=== PATIENT | female | born 1945 | race Caucasian/White ===

== ENCOUNTER 2016-11-27 17:59 | Inpatient (IN) | payer MEDICARE ==
[~2016-11-27] VITALS: Ht 160 cm; Wt 69.8 kg
[2016-11-27] MEDS ORDERED: HYDROmorphone 1 MG/ML, 1ML ONE (19:15)
[2016-11-27] MEDS ORDERED: ONDANSETRON 2MG/ML, 2ML ONE (19:16)
[2016-11-27 19:25] LABS: HEMATOCRIT 40.5 % (34.6-47.8); HEMOGLOBIN 13.5 g/dL (11.7-16.4)
[2016-11-27] MEDS ORDERED: ONDANSETRON 2MG/ML, 2ML IVPush ONE (19:30)
[2016-11-27] MEDS ORDERED: SODIUM CHLORIDE FLUSH 10ML SYR IVF ONE (19:30)
[2016-11-27] MEDS ORDERED: HYDROmorphone 1 MG/ML, 1ML IVPush PRN (19:30)
[2016-11-27 19:35] LABS: ASPARTATE AMINO TRANSFERASE 20 U/L (15-37); BLOOD UREA NITROGEN 30 mg/dL (7-18)
[2016-11-27] MEDS ORDERED: VARE1TAB21 PO (20:40)
[2016-11-27] MEDS ORDERED: ASPI-621 PO (20:40)
[2016-11-27] MEDS ORDERED: GABA300C10 PO (20:40)
[2016-11-27] MEDS ORDERED: LEVO137T3 PO (20:40)
[2016-11-27] MEDS ORDERED: METF1000 PO (20:40)
[2016-11-27] MEDS ORDERED: LISI40TA PO (20:40)
[2016-11-27] MEDS ORDERED: MAGN400T7 PO (20:40)
[2016-11-27] MEDS ORDERED: ROSU10TA PO (20:40)
[2016-11-27] MEDS ORDERED: CELE200C PO (20:40)
[2016-11-27] MEDS ORDERED: CHOL100011 PO (20:40)
[2016-11-27] MEDS ORDERED: FLUT9.9S NAS (20:40)
[2016-11-27] MEDS ORDERED: DULO60CA7 PO (20:40)
[2016-11-27] MEDS ORDERED: HYDR25TA11 PO (20:40)
[2016-11-27] MEDS ORDERED: METH-356 PO (20:40)
[2016-11-27] MEDS ORDERED: ACETAMINOPHEN 325 MG TABLET PO PRN (22:00)
[2016-11-27] MEDS ORDERED: DIPHENHYDRAMINE 25 MG CAPSULE PO PRN (22:00)
[2016-11-27] MEDS ORDERED: ONDANSETRON 2MG/ML, 2ML IVPush PRN (22:00)
[2016-11-27] MEDS ORDERED: POLYETHYLENE GLYCOL 17 GM PACKET PO PRN (22:00)
[2016-11-27 22:49] VITALS: BP 115/66
[2016-11-27] MEDS: GABAPENTIN 300 MG CAPSULE PO SCH ×3 (23:00→23:53)
[2016-11-27] MEDS: SODIUM CHLORIDE 0.9% 1,000 ML IV SCH (23:09)
[2016-11-27] MEDS: HYDROmorphone 2 MG/ML, 1ML IVPush PRN (23:09)
[2016-11-28 01:42] VITALS: BP 127/72
[2016-11-28] MEDS: LEVOTHYROXINE 137 MCG TABLET PO SCH (05:06)
[2016-11-28] MEDS: HYDROmorphone 2 MG/ML, 1ML IVPush PRN (05:06)
[2016-11-28] MEDS ORDERED: TRANEXAMIC ACID 100 MG/ML, 10ML ONE (07:31)
[2016-11-28] MEDS ORDERED: LIDOCAINE/MPF 2%-EPI 1:200K, 20 ML ONE (07:32)
[2016-11-28] MEDS ORDERED: THROMBIN 5,000 UNIT VIAL TP ONE (07:32)
[2016-11-28] MEDS ORDERED: VANCOMYCIN 1,000 MG ONE (07:32)
[2016-11-28 07:39] LABS: BLOOD UREA NITROGEN 25 mg/dL (7-18)
[2016-11-28] MEDS ORDERED: BUPIVACAINE LIPOSOME/PF INFIL ONE (07:40)
[2016-11-28] MEDS ORDERED: FENTANYL PF 100 MCG/2ML ONE ×3 (07:42→11:11)
[2016-11-28] MEDS ORDERED: MIDAZOLAM 1 MG/ML, 2ML ONE (07:42)
[2016-11-28] MEDS ORDERED: KETAMINE 10 MG/ML, 20ML ONE ×2 (07:42→08:01)
[2016-11-28] MEDS ORDERED: EPHEDRINE 50 MG/ML, 1ML ONE (08:01)
[2016-11-28] MEDS ORDERED: PHENYLEPHRINE 10 MG/ML ONE (08:01)
[2016-11-28] MEDS ORDERED: DEXAMETHASONE 4 MG/ML, 1ML ONE (08:01)
[2016-11-28] MEDS ORDERED: PROPOFOL 10 MG/ML, 20ML ONE (08:01)
[2016-11-28] MEDS ORDERED: CEFAZOLIN 1,000 MG ONE (08:01)
[2016-11-28] MEDS ORDERED: HYDROmorphone 2 MG/ML, 1ML ONE (08:22)
[2016-11-28] MEDS ORDERED: GABAPENTIN 300 MG CAPSULE PO SCH (09:00)
[2016-11-28] MEDS ORDERED: FENTANYL PF 100 MCG/2ML IV PRN (09:30)
[2016-11-28] MEDS ORDERED: LORazepam 2 MG/ML, 1ML IVPush PRN (09:30)
[2016-11-28] MEDS ORDERED: OXYcodone 5 MG/5 ML ORAL.SOL UDC PO PRN (09:30)
[2016-11-28] MEDS ORDERED: HYDROmorphone 1 MG/ML, 1ML IV PRN (09:30)
[2016-11-28] MEDS ORDERED: MEPERIDINE/PF 25MG/0.5ML IVPush PRN (09:30)
[2016-11-28] MEDS ORDERED: ACETAMINOPHEN 325 MG TABLET PO PRN (09:30)
[2016-11-28] MEDS ORDERED: ONDANSETRON 2MG/ML, 2ML IVPush PRN (09:30)
[2016-11-28] MEDS ORDERED: MIDAZOLAM 1 MG/ML, 2ML IV PRN (09:30)
[2016-11-28] MEDS ORDERED: LABETALOL 5MG/ML, 20ML IV PRN (09:30)
[2016-11-28] MEDS ORDERED: PROMETHAZINE 25 MG/ML, 1ML IV PRN (09:30)
[2016-11-28] MEDS ORDERED: DIAZEPAM 5 MG/ML, 2ML IVPush PRN (09:30)
[2016-11-28] MEDS ORDERED: ALBUTEROL/IPRATROPIUM 2.5MG/0.5MG, 3 ML NPPB PRN (09:30)
[2016-11-28] MEDS ORDERED: hydrALAzine 20 MG/ML, 1ML IV PRN (09:30)
[2016-11-28] MEDS ORDERED: HYDROmorphone 1 MG/ML, 1ML ONE (10:14)
[2016-11-28] MEDS ORDERED: OXYcodone 5 MG/5 ML ORAL.SOL UDC ONE (11:12)
[2016-11-28] MEDS ORDERED: HYDROmorphone 2MG TABLET PO PRN (12:30)
[2016-11-28] MEDS: KETOROLAC 30 MG/1 ML IM SCH ×2 (12:30→20:25)
[2016-11-28] MEDS ORDERED: OXYcodone/APAP 5/325MG TABLET PO PRN (12:30)
[2016-11-28] MEDS: KETOROLAC 30 MG/1 ML IVPush SCH ×2 (12:30→20:25)
[2016-11-28] MEDS ORDERED: KETOROLAC 30 MG/1 ML IV ONE (12:30)
[2016-11-28] MEDS: FLUTICASONE NASAL SPRAY 16GM NAS SCH (12:34)
[2016-11-28] MEDS: DULOXETINE 30 MG CAPSULE.DR PO SCH (12:35)
[2016-11-28] MEDS: MAGNESIUM OXIDE 400 MG TABLET PO SCH (12:35)
[2016-11-28] MEDS: CHOLECALCIFEROL 1,000 UNIT TABLET PO SCH (12:35)
[2016-11-28] MEDS: GABAPENTIN 300 MG CAPSULE PO SCH ×3 (12:35→20:31)
[2016-11-28] MEDS: LISINOPRIL 20 MG TABLET PO SCH (12:35)
[2016-11-28] MEDS: SODIUM CHLORIDE 0.9% 1,000 ML IV SCH ×2 (13:28→23:00)
[2016-11-28 14:26] VITALS: BP 105/66
[2016-11-28] MEDS: CEFAZOLIN PMX 1GM/50ML 50 ML IVPB SCH ×2 (16:06→23:00)
[2016-11-28 20:04] VITALS: BP 131/68
[2016-11-28] MEDS: METHADONE 10 MG TABLET PO PRN (20:31)
[2016-11-28] MEDS: ATORVASTATIN 20 MG TABLET PO SCH (20:32)
[2016-11-29] MEDS: METHADONE 10 MG TABLET PO PRN (00:59)
[2016-11-29] MEDS: PROMETHAZINE 25 MG/ML, 1ML IM PRN (00:59)
[2016-11-29 01:04] VITALS: BP 121/70
[2016-11-29] MEDS: KETOROLAC 30 MG/1 ML IM SCH ×6 (04:27→23:48)
[2016-11-29] MEDS: KETOROLAC 30 MG/1 ML IVPush SCH ×3 (04:27→23:37)
[2016-11-29] MEDS: LEVOTHYROXINE 137 MCG TABLET PO SCH (05:36)
[2016-11-29 05:52] LABS: HEMOGLOBIN 11.4 g/dL (11.7-16.4); WHITE BLOOD COUNT 16.4 x10^3/uL (3.4-10)
[2016-11-29 06:23] LABS: BLOOD UREA NITROGEN 24 mg/dL (7-18)
[2016-11-29 07:50] VITALS: BP 122/56
[2016-11-29] MEDS ORDERED: ONDANSETRON ODT 4 MG ONE (10:16)
[2016-11-29] MEDS: ONDANSETRON ODT 4 MG PO PRN ×2 (10:17→15:38)
[2016-11-29] MEDS: MAGNESIUM OXIDE 400 MG TABLET PO SCH (11:05)
[2016-11-29] MEDS: LISINOPRIL 20 MG TABLET PO SCH ×2 (11:05→15:29)
[2016-11-29] MEDS: DULOXETINE 30 MG CAPSULE.DR PO SCH (11:05)
[2016-11-29] MEDS: CHOLECALCIFEROL 1,000 UNIT TABLET PO SCH ×2 (11:06→15:29)
[2016-11-29] MEDS: FLUTICASONE NASAL SPRAY 16GM NAS SCH (11:06)
[2016-11-29] MEDS: GABAPENTIN 300 MG CAPSULE PO SCH ×3 (11:06→23:37)
[2016-11-29 13:30] VITALS: BP 112/55
[2016-11-29] MEDS: SODIUM CHLORIDE 0.9% 1,000 ML IV SCH ×3 (15:36→23:37)
[2016-11-29 18:42] VITALS: BP 131/73
[2016-11-29 20:04] VITALS: BP 143/66
[2016-11-29] MEDS ORDERED: ACETAMINOPHEN 325 MG TABLET PO PRN (20:30)
[2016-11-29] MEDS ORDERED: POLYETHYLENE GLYCOL 17 GM PACKET PO PRN (20:30)
[2016-11-29] MEDS ORDERED: DIPHENHYDRAMINE 25 MG CAPSULE PO PRN (20:30)
[2016-11-29 22:47] LABS: PATH.CAST-FLAG NOT PRESENT; SPERM-FLAG NOT PRESENT; SRC-FLAG NOT PRESENT; XTAL-FLAG NOT PRESENT; YLC-FLAG NOT PRESENT
[2016-11-29] MEDS: ATORVASTATIN 20 MG TABLET PO SCH (23:37)
[2016-11-30 01:35] VITALS: BP 137/59
[2016-11-30] MEDS: ONDANSETRON 2MG/ML, 2ML IV PRN (03:28)
[2016-11-30 06:03] LABS: HEMATOCRIT 33.4 % (34.6-47.8); HEMOGLOBIN 11.4 g/dL (11.7-16.4); WHITE BLOOD COUNT 14.8 x10^3/uL (3.4-10)
[2016-11-30 06:29] LABS: ASPARTATE AMINO TRANSFERASE 20 U/L (15-37); BLOOD UREA NITROGEN 26 mg/dL (7-18)
[2016-11-30 07:55] VITALS: BP 142/63
[2016-11-30] MEDS: FLUTICASONE NASAL SPRAY 16GM NAS SCH (09:00)
[2016-11-30] MEDS: MAGNESIUM OXIDE 400 MG TABLET PO SCH (09:00)
[2016-11-30] MEDS: GABAPENTIN 300 MG CAPSULE PO SCH ×3 (09:00→20:58)
[2016-11-30] MEDS: CHOLECALCIFEROL 1,000 UNIT TABLET PO SCH (09:00)
[2016-11-30] MEDS: LEVOTHYROXINE 137 MCG TABLET PO SCH (09:00)
[2016-11-30] MEDS: DULOXETINE 30 MG CAPSULE.DR PO SCH (09:00)
[2016-11-30] MEDS: LISINOPRIL 20 MG TABLET PO SCH (09:00)
[2016-11-30 13:34] VITALS: BP 130/77
[2016-11-30] MEDS: SODIUM CHLORIDE 0.9% 1,000 ML IV SCH ×2 (13:52→20:58)
[2016-11-30] MEDS ORDERED: METHOCARBAMOL 750 MG TABLET PO PRN (15:00)
[2016-11-30] MEDS: PROMETHAZINE 25 MG/ML, 1ML IM PRN (20:58)
[2016-11-30] MEDS: ATORVASTATIN 20 MG TABLET PO SCH (20:58)
[2016-11-30 21:00] VITALS: BP 158/70
[2016-12-01] MEDS: METHADONE 10 MG TABLET PO PRN ×2 (00:13→05:14)
[2016-12-01 03:52] VITALS: BP 156/74
[2016-12-01] MEDS: SODIUM CHLORIDE 0.9% 1,000 ML IV SCH ×2 (05:14→20:50)
[2016-12-01] MEDS: LEVOTHYROXINE 137 MCG TABLET PO SCH ×2 (05:14→06:00)
[2016-12-01 05:20] LABS: HEMATOCRIT 34.6 % (34.6-47.8); HEMOGLOBIN 11.5 g/dL (11.7-16.4); WHITE BLOOD COUNT 12.1 x10^3/uL (3.4-10)
[2016-12-01 05:31] LABS: BLOOD UREA NITROGEN 24 mg/dL (7-18)
[2016-12-01 07:59] VITALS: BP 152/73
[2016-12-01] MEDS ORDERED: LORazepam 2 MG/ML, 1ML ONE (08:27)
[2016-12-01] MEDS ORDERED: LORazepam 2 MG/ML, 1ML IVPush ONE (08:30)
[2016-12-01] MEDS: LISINOPRIL 20 MG TABLET PO SCH (09:00)
[2016-12-01] MEDS: MAGNESIUM OXIDE 400 MG TABLET PO SCH (09:00)
[2016-12-01] MEDS: DULOXETINE 30 MG CAPSULE.DR PO SCH (09:00)
[2016-12-01] MEDS: CHOLECALCIFEROL 1,000 UNIT TABLET PO SCH (09:00)
[2016-12-01] MEDS: GABAPENTIN 300 MG CAPSULE PO SCH ×3 (09:00→20:29)
[2016-12-01] MEDS: FLUTICASONE NASAL SPRAY 16GM NAS SCH (09:00)
[2016-12-01] MEDS ORDERED: FENTANYL PF 100 MCG/2ML ONE (11:21)
[2016-12-01] MEDS ORDERED: MIDAZOLAM 1 MG/ML, 5ML ONE (11:21)
[2016-12-01] MEDS ORDERED: GADOBUTROL 7.5 MMOL/7.5 ML PFS ONE (13:17)
[2016-12-01 13:25] VITALS: BP 130/75
[2016-12-01] MEDS ORDERED: METHADONE 10 MG TABLET PO PRN (17:30)
[2016-12-01 19:46] VITALS: BP 136/70
[2016-12-01] MEDS: ATORVASTATIN 20 MG TABLET PO SCH (20:29)
[2016-12-01] MEDS: ONDANSETRON 2MG/ML, 2ML IV PRN (20:50)
[2016-12-01] MEDS ORDERED: OMNIPAQUE 350 MG/ML, 100ML BOTTLE ONE (23:37)
[2016-12-02 02:36] VITALS: BP 139/65
[2016-12-02] MEDS: LEVOTHYROXINE 137 MCG TABLET PO SCH (05:18)
[2016-12-02 08:27] VITALS: BP 111/73
[2016-12-02] MEDS: DULOXETINE 30 MG CAPSULE.DR PO SCH (08:55)
[2016-12-02] MEDS: MAGNESIUM OXIDE 400 MG TABLET PO SCH (08:55)
[2016-12-02] MEDS: GABAPENTIN 300 MG CAPSULE PO SCH ×2 (08:56→17:10)
[2016-12-02] MEDS: CHOLECALCIFEROL 1,000 UNIT TABLET PO SCH (08:56)
[2016-12-02] MEDS: LISINOPRIL 20 MG TABLET PO SCH (08:56)
[2016-12-02] MEDS: FLUTICASONE NASAL SPRAY 16GM NAS SCH (10:25)
[2016-12-02] MEDS: SODIUM CHLORIDE 0.9% 1,000 ML IV SCH (12:00)
[2016-12-02] MEDS ORDERED: METHADONE 10 MG TABLET PO ONE (14:17)
[2016-12-02 14:54] VITALS: BP 153/69
[2016-12-02 17:12] VITALS: BP 153/71
== END 2016-12-02 17:39 | disposition home or self-care (01) | DRG 40 ==
LOC: ED 20:09 → EDIP 20:25 → 3NW 22:05 → 4NOR 11-28 12:00
PROVIDERS: ADMIT Internal Medicine; ATTEND Internal Medicine
PROC: 01NB0ZZ Release Lumbar Nerve, Open Approach (ICD-10-PCS; principal; 2016-11-28 08:00)
DX: G83.4 Cauda equina syndrome (principal); N17.0 Acute kidney failure with tubular necrosis; I61.5 Nontraumatic intracerebral hemorrhage, intraventricular; G93.40 Encephalopathy, unspecified; E87.1 Hypo-osmolality and hyponatremia; F33.9 Major depressive disorder, recurrent, unspecified; L97.412 Non-pressure chronic ulcer of right heel and midfoot with fat layer exposed; D72.829 Elevated white blood cell count, unspecified; M48.06 Spinal stenosis, lumbar region; E03.9 Hypothyroidism, unspecified; E78.5 Hyperlipidemia, unspecified; E87.5 Hyperkalemia; F17.210 Nicotine dependence, cigarettes, uncomplicated; G89.29 Other chronic pain; J43.9 Emphysema, unspecified; M43.10 Spondylolisthesis, site unspecified; M79.7 Fibromyalgia; Z82.49 Family history of ischemic heart disease and other diseases of the circulatory system; M54.10 Radiculopathy, site unspecified; E11.621 Type 2 diabetes mellitus with foot ulcer; L97.519 Non-pressure chronic ulcer of other part of right foot with unspecified severity; R15.9 Full incontinence of feces
CPT/HCPCS: 36415; 70450; 70496; 70553; 71010; 72040; 72100; 72141; 80048; 80053; 81001; 82040; 83036; 83605; 85025; 85610; 85730; 87040; 93005; 96374; 96375; 99156; 99157; A9585; C9290; J0690; J1100; J1170; J1885; J2250; J2405; J2550; J2704; J3010; J3370; J3490; Q0162; Q9967; J2060; J2370; J7030; Q0177